=== PATIENT | male | born 1965 | race African-American/Black ===

== ENCOUNTER → 2020-07-27 | Outpatient (CLI) | payer MEDICAID ==
[~2020-07-27] MED LIST: ACET-2708 PO; CYAN500T66 PO; DOCU-272 PO; GABA-531 PO; IPRA4AER INH; LOSA100T32 PO; MULT-1116 PO; NAPR-681 PO; OMEP40CA12 PO
== END | disposition home or self-care (01) ==
LOC: LAB 08:40
PROVIDERS: ATTEND Neurological Surgery
DX: Z01.812 Encounter for preprocedural laboratory examination (principal); Z20.828 Contact with and (suspected) exposure to other viral communicable diseases
CPT/HCPCS: C9803; U0003